=== PATIENT | male | born 1990 | race Caucasian/White ===

== ENCOUNTER 2019-12-26 02:05 | Emergency (ER) | payer SELFPAY ==
[~2019-12-26] VITALS: Ht 188 cm; Wt 113.4 kg
[2019-12-26] MEDS ORDERED: LYRICA50 MG PO (02:16)
[2019-12-26] MEDS ORDERED: FLOMAX0.4 MG PO (04:20)
[2019-12-26] MEDS ORDERED: PERCOCET 5-3251 EACH PO (04:20)
[2019-12-26] MEDS ORDERED: KETOROLAC TROME10 MG PO (04:20)
== END 2019-12-26 04:51 | disposition home or self-care (01) ==
LOC: ED 02:05
DX: N13.2 Hydronephrosis with renal and ureteral calculous obstruction (principal); Z87.891 Personal history of nicotine dependence; Z79.899 Other long term (current) drug therapy
CPT/HCPCS: 74176; 80053; 81001; 83690; 85025; 96374; 96375; 96376; 99284-25; J1170; J1885; J2405